=== PATIENT | male | born 1970 | race Caucasian/White ===

== ENCOUNTER 2020-11-11 15:41 | Inpatient (IN) | payer OTHER, SELFPAY ==
[2020-11-11] VITALS (8 sets, daily range): BP systolic 143–188; BP diastolic 84–110; PULSE 82–96; RESP 18–32; TEMP 36.6–37.3; O2SAT 95–100; BMI 47.1
--- NOTE | ~2020-11-11 | US_ITS ---
EXAMINATION: US venous doppler [facility] DATE: 11/12/2020 11:40 INDICATION: Chest pain and shortness of breath TECHNIQUE: Spaulding scale images without and with compression and Doppler images of the bilateral lower e xtremity veins were obtained. COMPARISON: None FINDINGS: The right common femoral vein, profunda femoral vein, femoral vein, popliteal vein, peroneal trunk, p osterior tibial veins, and greater saphenous vein are patent. The left common femoral vein, profunda femoral vein, femoral vein, popliteal vein, peroneal trunk, po sterior tibial veins, and greater saphenous vein are patent. IMPRESSION: 1. Patent bilateral lower extremity veins. No evidence of deep venous thrombosis. Reviewed, dictated and finalized at location A. IMPRESSION: 1. Patent bilateral lower extremity veins. No evidence of deep venous thrombosi s.
--- NOTE | ~2020-11-11 | XR_ITS ---
EXAMINATION: XR chest 2V DATE: 11/11/2020 16:33 INDICATION: Left chest pain. Left arm pain. Shortness of breath. TECHNIQUE: Frontal and lateral views of the chest were obtained. COMPARISON: None. FINDINGS: The chest demonstrates clear lungs without pneumonia, pleural effusion, or pneumothorax. Th e heart size is normal. IMPRESSION: 1. No acute cardiopulmonary disease. Reviewed, dictated and finalized at location A.
--- NOTE | 2020-11-11 16:01 | ECG_ITS ---
Measurements Intervals [place] Rate: 89 P: 33 OK: 143 QRS: 16 QRSD: 109 T: 76 QT: 393 QTc: 479 Interpretive Statements SINUS RHYTHM NONSPECIFIC T-WAVE ABNORMALITY- DIFFUSE LEADS BASELINE WANDER- V3-V4 BORDERLINE ECG Electronically Signed On 11-11-2020 19:00:57 CDT by Doug Bojorquez D.O.
[2020-11-11 16:19] LABS: Basophils Absolute Auto 0.1 K/mm3 (0.0-0.1); Basophils Percent Auto 0.8 % (0.2-1.2); Eosinophils Absolute Auto 0.2 K/mm3 (0-0.3); Eosinophils Percent Auto 2.2 % (0-4.4); Hematocrit 48.6 % (42.0-52.0); Hemoglobin 16.5 g/dL (14.0-18.0); Immature Granulocyte Absolute 0.09 K/mm3 (0.00-0.031); Immature Granulocyte Percent A 0.9 % (0-0.5); Lymphocytes Absolute Auto 2.87 K/mm3 (0.9-3.2); Lymphocytes Percent Auto 27.6 % (18.3-44.2); Mean Corpuscular Hemoglobin 28.9 pg (26-34); Mean Corpuscular Volume 85.3 fl (80-100); Mean Platelet Volume 10.1 fl (7.4-10.4); Monocytes Absolute Auto 0.8 K/mm3 (0.1-0.6); Monocytes Percent Auto 8.1 % (2.6-8.5); Neutrophils Absolute Auto 6.3 K/mm3 (1.3-6.7); Neutrophils Percent Auto 60.4 % (45.5-73.1); Platelet Count Result 202 k/mm3 (150-375); White Blood Count 10.4 K/mm3 (4.5-10.0)
[2020-11-11 16:35] LABS: INR 0.9
[2020-11-11 16:36] LABS: Partial Thromboplastin Time 27.2 SECONDS (22.3-36.8)
[2020-11-11 16:38] LABS: Anion Gap 9 mmol/L (8-16); Blood Urea Nitrogen 14 mg/dL (9-20); Calcium 9.1 mg/dL (8.4-10.2); Carbon Dioxide 27 mmol/L (22-30); Chloride 104 mmol/L (98-107); Estimated CRCL calculation 161 ml/min; Estimated Glomerular Filt Rate > 60; Glucose 116 mg/dL (65-110); Potassium 3.2 mmol/L (3.4-5.0); Sodium 140 mmol/L (137-145)
[2020-11-11 16:51] LABS: Troponin I 0.126 ng/mL (0.000-0.034)
[2020-11-11] MEDS: ASPIRIN 81 MG CHEWABLE TABLET 324 MG PO (17:16)
[2020-11-11] MEDS: METOPROLOL TARTRATE INJ 5 MG/5 ML VIAL IV PUSH (17:16)
--- NOTE | 2020-11-11 17:47 | ED.CHESTPAIN ---
HPI - Chest Pain General Chief Complaint: Chest Pain Stated Complaint: cp/left arm pain Time Seen by Provider: 11/11/20 17:04 Source: patient and family Mode of arrival: ambulatory Limitations: no limitations History of Present Illness HPI narrative: 50-year-old with no major medical problems here with complaints of left-sided chest pain radiating into his left arm. Patient states that he was working on his computer developed a sudden onset of left chest pain which lasted for half hour. Patient also states that he was extremely short of breath and dizzy. His checked his blood pressure and his diastolic was about 120. He states that his pain is much subsided however he has some tingling sensation in his left arm. He denies previous history of coronary artery disease. MD complaint: chest pain and chest heaviness Onset (ago): hour(s) (2) Timing of current episode: now resolved Prior episodes: No Onset: during rest Pain location: left chest Pain radiation: left arm Severity: moderate Quality: heaviness Relieving factors: nothing Exacerbating factors: nothing Risk Factors Coronary artery disease risk factors: none Thoracic aortic dissection risk factors: none Pulmonary embolism risk factors: morbid obesity Related Data Home Medications Medication Instructions Recorded Confirmed No Home Medications 11/11/20 11/11/20 Allergies Allergy/AdvReac Type Severity Reaction Status Date / Time No Known Allergies Allergy Mild Verified 11/11/20 17:01 Review of Systems Review of Systems: All systems reviewed & are unremarkable except as noted in HPI and below Constitutional: Constitutional: Reports no additional constitutional complaints Eyes: Eyes: Reports no additional eye complaints ENT: Reports system reviewed and no additional complaints, except as documented Cardiovascular: Cardiovascular: Reports as per HPI Respiratory: Respiratory: Reports as per HPI Gastrointestinal: Gastrointestinal: Reports no additional gastrointestinal complaints Musculoskeletal: Musculoskeletal: Reports no additional musculoskeletal complaints Integumentary/Breasts: Skin/Breast: Reports system reviewed and no additional complaints, except as docu Neurologic: Reports system reviewed and no additional complaints, except as documented Psychiatric: Psychiatric: Reports no additional psychiatric complaints [facility] Social History Social History Smoking status: Never smoker Alcohol intake: current Exam Narrative: GENERAL: Well-appearing, morbidly obese and in no acute distress. HEAD: Normocephalic, atraumatic. EYES: PERRLA and EOMI.. NECK: Supple. CHEST: Clear to auscultation. No respiratory distress. HEART: Regular rate and rhythm. No murmur heard. Normal peripheral pulses. ABDOMEN: Soft, nontender, morbidly obese, normal active bowel sounds. EXTREMITIES: Normal range of motion. No edema. SKIN: Warm, dry, no rash. NEURO: No focal deficits. Alert and oriented x3. PSYCH: Normal mood and affect. Course Course Emergency Course: Patient presently not having any symptoms. I informed him about his lab work and EKG findings. Will admit to the hospital for rule out. Consult cardiology patient agreed with the plan. Discussed with hospitalist agreed to admit the patient. Vital Signs Vital signs: Vital Signs Temperature 37.3 C 11/11/20 15:58 Pulse Rate 88 11/11/20 15:58 Respiratory Rate 20 11/11/20 15:58 Blood Pressure 187/105 H 11/11/20 15:58 Pulse Oximetry 98 11/11/20 15:58 Temperature 37.3 C 11/11/20 15:58 Pulse Rate 88 11/11/20 19:05 Respiratory Rate 32 H 11/11/20 19:05 Blood Pressure 143/98 H 11/11/20 19:05 Pulse Oximetry 98 11/11/20 16:56 MDM - Chest Pain MDM Narrative Medical decision making narrative: With a given history of left-sided chest pain associated with dizziness and shortness of breath will do cardiac work-up which in
[2020-11-11] MEDS: hydrALAZINE HCL 20 MG/ML VIAL 10 MG IV PUSH (18:20)
[2020-11-11] MEDS: ENOXAPARIN 80 MG/0.8 ML SYRINGE 150 MG SUB-Q (18:26)
[2020-11-11] MEDS: NITROGLYCERIN OINTMENT 1 INCH DOSE TRANSDERM ×2 (18:44→23:06)
[2020-11-11] MEDS: NITROGLYCERIN OINTMENT 1 INCH DOSE (18:47)
[2020-11-11 19:55] LABS: Troponin I 0.171 ng/mL (0.000-0.034)
--- NOTE | 2020-11-11 21:21 | PC.NURSE ---
Unit unable to take report at this time. Unit will call ED back.
[2020-11-11] MEDS: ACETAMINOPHEN 325 MG TABLET 650 MG PO (21:53)
--- NOTE | 2020-11-11 22:10 | ADMGEN ---
This patient, Jose Benites, was admitted to IMU Room 211-01. Patient/family oriented to hospital policies and general routines including ID bracelet, bed and alarms, visiting hours, pain management, procedures, bathroom and other care routines, personal items, smoking policy, room service/diet, and visiting hours. Information on how to activate the Rapid Response Team has been discussed. Patient/Family are encouraged to report perceived risks to care and to ask questions if they do not understand what they are told or what they should do.
--- NOTE | 2020-11-11 22:29 | PM.IMHP ---
H&P: HPI History of Present Illness Date/Time: 11/11/20 22:29 this is a 50-year-old obese male patient who has no prior medical history. The patient stated that he has high triglycerides in the past but has not been placed on any medications. The patient works from home and has a very sedentary lifestyle. The patient has had no prior history of hypertension or any heart disease. The patient stated that he was sitting at his computer today when he developed some left-sided chest pain that radiated to his left arm. The patient stated that he has had surgery to his left shoulder in the past with some arthritis and thought that maybe he was just having arthritis pain. The patient stated that his pain lasted approximately half an hour. However when the patient stood up he was short of breath and dizzy. He checked his blood pressure in his diastolic blood pressure was 120. The patient stated that the pain subsided when he came to the emergency room still had some tingling sensation to his left arm. Patient was given aspirin, Lopressor IV, hydralazine, and Lovenox, nitroglycerin. Patient's potassium is 3.2. Patient's troponin was 0.126 and 0.171. I did consult Cardiology. Patient's EKG was read as sinus rhythm nonspecific T-wave abnormality diffuse leads. Chest x-ray was read as no acute cardiopulmonary disease. The patient is being admitted to inpatient services on 11/12/2019. Chief Complaint: Chest pain Review of Systems Review of Systems: All systems reviewed & are unremarkable except as noted in HPI and below Constitutional: Constitutional: Reports as per HPI and Reports no additional constitutional complaints Eyes: Eyes: Reports as per HPI and Reports no additional eye complaints ENT: Reports system reviewed and no additional complaints, except as documented and Reports Normal hearing present Cardiovascular: Cardiovascular: Reports no additional cardiovascular complaints Respiratory: Respiratory: Reports no additional respiratory complaints and Reports no additional respiratory complaints Gastrointestinal: Gastrointestinal: Reports as per HPI and Reports no additional gastrointestinal complaints Musculoskeletal: Musculoskeletal: Reports no additional musculoskeletal complaints Integumentary/Breasts: Skin/Breast: Reports system reviewed and no additional complaints, except as docu and Reports as per HPI Neurologic: Reports system reviewed and no additional complaints, except as documented, Reports as per HPI and Reports Normal hearing present Psychiatric: Psychiatric: Reports no additional psychiatric complaints and Reports as per HPI Endocrine: Endocrine: Reports no additional endocrine complaints Hematologic/Lymphatic: Hematologic/Lymphatic: Reports no additional hematologic/lymphatic complaints Allergic/Immunologic: Allergic/Immunologic: Reports no additional allergic/immunologic complaints PMFSH Past Medical History Medical History (Updated 11/11/20 @ 22:45 by Sonal Headley NP) Osteoarthritis Surgical History Surgical History (Updated 11/11/20 @ 22:39 by Sonal Headley NP) H/O shoulder surgery H/O wisdom tooth extraction Hx of LASIK Hx of vasectomy Previous back surgery L4-L5 Family History Family History (Updated 11/11/20 @ 22:39 by Sonal Headley NP) Unknown No significant family history Social History Social History (Updated 11/11/20 @ 22:40 by Sonal Headley NP) Social History: The patient is and lives with his . 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 The patient rarely drinks. He denies any tobacco, marijuana or street drugs. The patient is lifelong nonsmoker. Smoking status: Never smoker Alcohol intake: current Drinks per week: 1 Substance use type: does not use Spiritual care concerns: No Meds Home Medications and Allergies Home Medications Medication Instructions Recorded Confirmed Type No Home Med
[2020-11-11] MEDS: POTASSIUM CHLORIDE 20 MEQ PACKET (FOR LIQUID) PO (23:05)
[2020-11-12] VITALS (15 sets, daily range): BP systolic 120–172; BP diastolic 60–105; PULSE 64–107; RESP 18–28; TEMP 36–36.8; O2SAT 96–97
[2020-11-12 00:48] LABS: D Dimer 0.27 ug/mL (<0.48)
[2020-11-12 05:26] LABS: Basophils Absolute Auto 0.1 K/mm3 (0.0-0.1); Basophils Percent Auto 0.9 % (0.2-1.2); Eosinophils Absolute Auto 0.2 K/mm3 (0-0.3); Eosinophils Percent Auto 2.7 % (0-4.4); Hematocrit 43.7 % (42.0-52.0); Immature Granulocyte Absolute 0.07 K/mm3 (0.00-0.031); Immature Granulocyte Percent A 0.8 % (0-0.5); Lymphocytes Absolute Auto 3.25 K/mm3 (0.9-3.2); Lymphocytes Percent Auto 37.1 % (18.3-44.2); Mean Corpuscular HGB Conc 34.3 g/dl (32-36); Mean Corpuscular Hemoglobin 29.1 pg (26-34); Mean Corpuscular Volume 84.7 fl (80-100); Mean Platelet Volume 9.9 fl (7.4-10.4); Monocytes Absolute Auto 0.8 K/mm3 (0.1-0.6); Monocytes Percent Auto 8.9 % (2.6-8.5); Neutrophils Absolute Auto 4.3 K/mm3 (1.3-6.7); Neutrophils Percent Auto 49.6 % (45.5-73.1); Platelet Count Result 172 k/mm3 (150-375); Red Blood Count 5.16 M/mm3 (4.6-6.20); Red Cell Distribution Width 12.9 % (11.5-14.5); White Blood Count 8.8 K/mm3 (4.5-10.0)
[2020-11-12 05:37] LABS: Lactic Acid Reflex 1.2 mmol/L (0.7-2.1)
[2020-11-12 05:39] LABS: Alanine Aminotransferase 49 U/L (4-50); Albumin Level 3.8 g/dL (3.5-5.1); Alkaline Phosphatase 59 U/L (38-126); Anion Gap 13 mmol/L (8-16); Aspartate Amino Transferase 46 U/L (17-59); Bilirubin,Total 1.3 mg/dL (0.2-1.3); Blood Urea Nitrogen 13 mg/dL (9-20); Calcium 8.7 mg/dL (8.4-10.2); Carbon Dioxide 26 mmol/L (22-30); Chloride 100 mmol/L (98-107); Cholesterol 221 mg/dL (0-200); Estimated CRCL calculation 142 ml/min; Estimated Glomerular Filt Rate > 60; Glucose 130 mg/dL (65-110); HDL Direct 23 mg/dL; Lipase 120 U/L (23-300); Magnesium 2.1 mg/dL (1.6-2.3); Potassium 3.1 mmol/L (3.4-5.0); Sodium 139 mmol/L (137-145); Triglycerides 221 mg/dL (<150)
[2020-11-12 05:50] LABS: LDL Cholesterol Direct 131 mg/dL
[2020-11-12 05:54] LABS: Troponin I 0.169 ng/mL (0.000-0.034)
--- NOTE | 2020-11-12 06:00 | ECG_ITS ---
Measurements Intervals [place] Rate: 79 P: 25 NM: 149 QRS: 9 QRSD: 104 T: 79 QT: 416 QTc: 478 Interpretive Statements SINUS RHYTHM NONSPECIFIC ST ELEVATION IN ANT/INF LEADS NONSPECIFIC T-WAVE ABNORMALITY- HIGH LATERAL LEADS BORDERLINE ECG Electronically Signed On 11-12-2020 9:41:55 CDT by Doug Bojorquez D.O.
[2020-11-12] MEDS: ENOXAPARIN 80 MG/0.8 ML SYRINGE 150 MG SUB-Q (06:11)
[2020-11-12] MEDS: NITROGLYCERIN OINTMENT 1 INCH DOSE TRANSDERM (06:13)
[2020-11-12] MEDS: ACETAMINOPHEN 325 MG TABLET 650 MG PO (06:15)
--- NOTE | 2020-11-12 08:42 | PM.CNCAR ---
Assessment and Plan Assessment and plan (1) NSTEMI (non-ST elevated myocardial infarction): Code(s): I21.4 - Non-ST elevation (NSTEMI) myocardial infarction Status: Acute Assessment and Plan: Patient presents with recurrent symptoms concerning for unstable angina occurring at rest with nonspecific ST changes, elevated troponin with chest/shoulder pain extending to the left neck. Associated hypertensive urgency. Discussed differential including secondary plaque rupture related to severe hypertension/hypertensive urgency versus primary rupture of unstable plaque due to underlying CAD. Given recurrent nature of symptoms most concerning for underlying CAD and plaque rupture and non ST-elevation SD. -As patient has received full anticoagulation this morning at 0600, we are unable to proceed with coronary angiography due to excessive risk of bleeding. Discussed with Dr Mustafa Interventional Cardiology who also agrees angiography advised but bleeding risk unacceptably elevated. Therefore, will hold anticoagulation prior to angiography and plan for tomorrow morning unless pt becomes unstable or has refractory unstable anginal sxs necessitating urgent or emergent angiography. Discussed at length with the patient who verbalized understanding and agreed with plan of care. -aspirin 81 mg daily, statin, KENA-inhibitor for blood pressure control. Low-dose metoprolol 12.5 mg b.i.d. now. -discontinue nitroglycerin paste due to severe headache. -discussed evaluation and workup at length including pathophysiology. Discussed invasive versus noninvasive including stress test or coronary angiography. Given patient's symptoms, nature of troponin elevation, elevated lipids and hypertension I have recommended proceed with coronary angiography for definitive assessment coronary anatomy. Risks including but not limited to bleeding, infection, stroke, myocardial infarction and/or discussed. All questions answered to his satisfaction. We discussed timeline anticipated with angiography and discharge depending upon need for intervention. -check 2D echocardiogram today. NPO after midnight for coronary angiography. He is to notify us immediately should he have recurrence of chest discomfort. -D-dimer negative. Lower extremity venous Dopplers pending. (2) Hypertensive urgency: Code(s): I16.0 - Hypertensive urgency Status: Acute Assessment and Plan: BP much better controlled after IV hydralazine, nitroglycerin paste. Add lisinopril 5 mg daily, metoprolol 12.5 mg twice daily. Discontinue nitroglycerin paste. (3) Dyslipidemia: Code(s): E78.5 - Hyperlipidemia, unspecified Status: Acute Assessment and Plan: LDL 130. If CAD documented on angiography LDL goal less than 70. Initiate atorvastatin 80 mg at bedtime. (4) Morbid obesity with BMI of 45.0-49.9, adult: Code(s): E66.01 - Morbid (severe) obesity due to excess calories; Z68.42 - Body mass index [BMI] 45.0-49.9, adult Status: Acute Assessment and Plan: Lifestyle modification, weight loss, exercise, and dietary changes and reduction in caloric intake counseling performed at length. All questions answered to his satisfaction. (5) CONNIE (obstructive sleep apnea): Code(s): G47.33 - Obstructive sleep apnea (adult) (pediatric) Status: Acute Assessment and Plan: History of CONNIE treated with CPAP many years ago. -Apnea link overnight for screening. Anticipate he will require outpatient follow-up and formal sleep study to reinitiate CPAP therapy. Recommendations to follow. We discussed the clinical implications and associated risks with untreated sleep apnea. History of Present Illness History of Present Illness Consult date/time: Date of service: 11/12/20 08:42 Cardiology consultation at the request of Sonal Headley of the [facility] service for opinion regarding chest pain and elevated troponin. Requesting physician: Jacinto Headley
--- NOTE | 2020-11-12 09:39 | ECHO_ITS ---
Patient Info Name: Jose Benites Age: 50 years : 1970 Gender: Male Ht: 70 in Wt: 328 lbs BSA: 2.79 m2 HR: 75 bpm BP: 146 / 88 mmHg Heart Rhythm: Sinus Rhythm Technical Quality: Poor Exam Date: 11/12/2020 11:40 AM Exam Location: [facility] Pulmonary Patient Status: Inpatient Admit Date: 11/11/2020 Staff Ordering Physician: Kendrick Whitehead MD Product Management Specialist: KRISTA Attending Provider: Amy Dumont PA-C Referring Physician: Ventura ARGUETA; Exam Type: CA echo dop color flow w con Study Info Complete two-dimensional, color flow and Doppler transthoracic echocardiogram is performed with contrast to opacify the left ventricle and to improve the deliniation of the left ventricle endocardial borders. Contrast/Agitated Saline Contrast/Ag. Saline: Definity Amount: 2.00 ml Reason for Poor Study: patient body habitus Summary 1. Technically difficult study with limited views despite definity echocardiographic enhancement. Regional wall motion assessment limited due to poor endomyocardial border definition. 2. Left ventricular chamber dimension is normal. 3. Left ventricular systolic function is normal, estimated at 60-65%. 4. There is mildly increased left ventricular wall thickness. Left Ventricle Left ventricular chamber dimension is normal. Left ventricular systolic function is normal, estimated at 60-65%. There is mildly increased left ventricular wall thickness. The left ventricular diastolic function is normal. Technically difficult study with limited views despite definity echocardiographic enhancement. Regional wall motion assessment limited due to poor endomyocardial border definition. Right Ventricle Right ventricular chamber dimension is not well visualized. Left Atria Left atrial chamber dimension is normal. Right Atria Right atrial chamber dimension is normal. Aortic Valve The aortic valve is not well visualized. There is no aortic valve stenosis. There is no aortic valve regurgitation. Pulmonic Valve The pulmonic valve is not well visualized. Mitral Valve The mitral valve has not well visualized. There is no mitral valve regurgitation. Tricuspid Valve The tricuspid valve leaflets are not well visualized. Pericardium/Pleural The pericardium appears normal. There is small pericardial effusion. Aorta The aortic root size at the sinus of Valsalva is normal. Left Ventricular Outflow Tract Name Value Normal LVOT 2D LVOT Diameter 2.03 cm LVOT Doppler LVOT Peak Gradient 3 mmHg LVOT Mean Gradient 2 mmHg LVOT VTI 20.03 cm LVOT VTI/AV VTI Ratio 0.73 LVOT Stroke Volume 64.95 ml LVOT CO 4.88 l/min LVOT CI 1.89 L/min/m2 Pulmonic Valve Name Value Normal
[2020-11-12 11:15] LABS: Hemoglobin A1C 5.6 % (<5.7)
--- NOTE | 2020-11-12 11:26 | PM.IMPN ---
Progress Note: A&P Assessment and Plan (1) Elevated troponin: Code(s): R77.8 - Other specified abnormalities of plasma proteins Status: Acute Assessment and Plan: Patient with chest pain with radiation to left arm and left neck with associated shortness of breath, lightheadedness and diaphoresis. Presented to ER for further evaluation and found to have elevated blood pressure, elevated troponins and cardiology was consulted. Cardiology is to preform a cath tomorrow AM Started on Statin due to Elevated Total Cholesterol and LDL at 131. Continue monitoring Tele. Continue monitoring. Appreciate Cardiology input. (2) Elevated blood-pressure reading without diagnosis of hypertension: Code(s): R03.0 - Elevated blood-pressure reading, without diagnosis of hypertension Status: Acute Assessment and Plan: Started on Lisinopril 5 mg and Metoprolol Tartrate 12.5 Q12hrs. BP Improved today. APpreciate cardiology and make adjustments as needed. (3) Unstable angina pectoris: Code(s): I20.0 - Unstable angina Status: Acute Assessment and Plan: Going to have cath tomorrow (4) Hypokalemia: Code(s): E87.6 - Hypokalemia Status: Acute Assessment and Plan: Low at 3.1. Replenished. Recheck in the morning Time Spent With Patient Time with patient: 25 - 35 minutes Subjective Date/time seen: 11/12/20 11:26 Interval history: Date of Service 11/12/20: The patient is feeling well at this time. Reports slight headache with Nitro patch. Otherwise no more chest pain, SOB. Denies any fever, chills, nausea, vomiting, abdominal pain, leg swelling, calf pain, lightheadedness or dizziness or any other symptoms at this time Review of Systems Review of Systems: All systems reviewed & are unremarkable except as noted in HPI and below Exam Narrative: General: 50-year-old man sitting up in bed talking on the phone. Appears comfortable. In no acute distress. Skin: No jaundice or cyanosis. Good skin turgor. Neck: Full range of motion. Supple. Respiratory: Lungs are clear to auscultation bilaterally. No bony chest wall tenderness. Cardiovascular: The heart has a regular rate and rhythm without murmur. Lower extremities: No lower extremity edema. Distal pulses are easily palpated. No calf tenderness to palpation. Gastrointestinal: The abdomen is soft, nontender and nondistended with active bowel sounds. Psychiatric: Lucid and oriented. Memory intact. Neurologic: No focal deficits. Speech is clear. No facial drooping. Objective Data Vital Signs Vital Signs: Vital Signs - 24 hr 11/11/20 15:58 11/11/20 16:56 11/11/20 16:57 Temperature 99.2 F Pulse Rate 88 93 90 Respiratory Rate 20 22 H Blood Pressure 187/105 H 188/110 H Pulse Oximetry 98 98 11/11/20 19:05 11/11/20 20:46 11/11/20 22:09 Temperature 97.9 F Pulse Rate 88 89 96 Respiratory Rate 32 H 20 20 Blood Pressure 143/98 H 152/89 H 162/96 H Pulse Oximetry 100 95 11/11/20 23:06 11/11/20 23:24 11/12/20 00:00 Temperature 98.0 F 98.0 F Pulse Rate 82 82 85 Respiratory Rate 18 20 Blood Pressure 151/84 H 151/84 H Pulse Oximetry 98 98 11/12/20 02:00 11/12/20 04:00 11/12/20 06:00 Temperature 98.0 F Pulse Rate 64 82 74 Respiratory Rate 18 Blood Pressure 120/60 Pulse Oximetry 97 11/12/20 08:00 Temperature 96.8 F L Pulse Rate 80 Respiratory Rate 28 H Blood Pressure 146/88 H Pulse Oximetry 96 Intake/Output Intake/Output: Intake & Output 11/09/20 11/10/20 11/11/20 11/12/20 23:59 23:59 23:59 23:59 Intake Total 200 Output Total 900 Balance -700 Meds/Results Medications: Active Medications Generic Name Dose Route Start Last Admin Trade Name Freq PRN Reason Stop Dose Admin Acetaminophen 650 mg 11/11/20 21:42 11/12/20 06:15 Acetaminophen 325 Mg Tablet PO 650 mg Q6H PRN Administration Mild Pain (1-3) or Fever Aspi
[2020-11-12] MEDS: PERFLUTREN LIPID MICROSPHERES 1.5 ML VIAL DILUTED TO 10 ML TOTAL VOLUME IV PUSH (11:57)
[2020-11-12] MEDS: ASPIRIN 81 MG ENTERIC TABLET PO (12:41)
[2020-11-12] MEDS: ATORVASTATIN 40 MG TABLET 80 MG PO (12:41)
[2020-11-12] MEDS: lisinopriL 5 MG TABLET PO (12:41)
[2020-11-12] MEDS: POTASSIUM CHLORIDE 20 MEQ TABLET 40 MEQ PO (12:42)
[2020-11-12] MEDS: PANTOPRAZOLE 40 MG TABLET PO (12:42)
[2020-11-12] MEDS: hydrALAZINE HCL 20 MG/ML VIAL 10 MG IV PUSH (17:54)
[2020-11-12] MEDS: METOPROLOL TARTRATE 12.5 MG TABLET PO (20:28)
[2020-11-13] VITALS (22 sets, daily range): BP systolic 126–166; BP diastolic 76–101; PULSE 71–105; RESP 14–28; TEMP 35.7–36.7; O2SAT 95–98
[2020-11-13 05:38] LABS: Anion Gap 10 mmol/L (8-16); Blood Urea Nitrogen 10 mg/dL (9-20); Calcium 8.7 mg/dL (8.4-10.2); Carbon Dioxide 23 mmol/L (22-30); Chloride 105 mmol/L (98-107); Estimated CRCL calculation 161 ml/min; Estimated Glomerular Filt Rate > 60; Glucose 145 mg/dL (65-110); Potassium 3.4 mmol/L (3.4-5.0); Sodium 138 mmol/L (137-145)
--- NOTE | 2020-11-13 09:24 | PC.NURSE ---
This patient, Jose Benites, was received from [facility] on 11/13/20 at 0925. Patient/family oriented to unit policies and routines
--- NOTE | 2020-11-13 09:52 | PC.NURSE ---
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 Hold Lipitor and Protonix for now.
[2020-11-13] MEDS: POTASSIUM CHLORIDE 20 MEQ TABLET 40 MEQ PO (10:02)
[2020-11-13] MEDS: ASPIRIN 81 MG ENTERIC TABLET PO (10:04)
[2020-11-13] MEDS: lisinopriL 5 MG TABLET PO (10:04)
[2020-11-13] MEDS: METOPROLOL TARTRATE 12.5 MG TABLET PO (10:05)
[2020-11-13 10:23] LABS: Alanine Aminotransferase 49 U/L (4-50); Albumin Level 4.2 g/dL (3.5-5.1); Alkaline Phosphatase 69 U/L (38-126); Aspartate Amino Transferase 44 U/L (17-59)
--- NOTE | 2020-11-13 11:36 | PM.IMPN ---
Progress Note: A&P Assessment and Plan (1) Elevated troponin: Code(s): R77.8 - Other specified abnormalities of plasma proteins Status: Acute Assessment and Plan: Patient with chest pain with radiation to left arm and left neck with associated shortness of breath, lightheadedness and diaphoresis. Presented to ER for further evaluation and found to have elevated blood pressure, elevated troponins and cardiology was consulted. Cardiology is to preform a cath today. Started on Statin due to Elevated Total Cholesterol and LDL at 131. Continue monitoring Tele. Continue monitoring. Appreciate Cardiology input. (2) Elevated blood-pressure reading without diagnosis of hypertension: Code(s): R03.0 - Elevated blood-pressure reading, without diagnosis of hypertension Status: Acute Assessment and Plan: Started on Lisinopril 5 mg and Metoprolol Tartrate 12.5 Q12hrs. BP Improved today. Appreciate cardiology and make adjustments as needed. (3) Unstable angina pectoris: Code(s): I20.0 - Unstable angina Status: Acute Assessment and Plan: Going to have cath tomorrow (4) Hypokalemia: Code(s): E87.6 - Hypokalemia Status: Acute Assessment and Plan: Low at 3.4. Replenished with 40 mEq today since borderline. Recheck in the morning. Time Spent With Patient Time with patient: 25 - 35 minutes Subjective Date/time seen: 11/13/20 11:36 Interval history: Date of Service 11/13/20: The patient is feeling well at this time. Reports being worried about back pain with having to lay flat for his cath. Otherwise no more chest pain, SOB. Denies any fever, chills, nausea, vomiting, abdominal pain, leg swelling, calf pain, lightheadedness or dizziness or any other symptoms at this time Review of Systems Review of Systems: All systems reviewed & are unremarkable except as noted in HPI and below Exam Narrative: General: 50-year-old man sitting up in bed watching a movie on his Ipad. Appears comfortable. In no acute distress. Skin: No jaundice or cyanosis. Good skin turgor. Neck: Full range of motion. Supple. Respiratory: Lungs are clear to auscultation bilaterally. No bony chest wall tenderness. Cardiovascular: The heart has a regular rate and rhythm without murmur. Lower extremities: No lower extremity edema. Distal pulses are easily palpated. No calf tenderness to palpation. Gastrointestinal: The abdomen is soft, nontender and nondistended with active bowel sounds. Psychiatric: Lucid and oriented. Memory intact. Neurologic: No focal deficits. Speech is clear. No facial drooping. Objective Data Vital Signs Vital Signs: Vital Signs - 24 hr 11/12/20 12:00 11/12/20 12:34 11/12/20 14:00 Temperature 97.8 F Pulse Rate 80 82 85 Respiratory Rate 24 H Blood Pressure 155/94 H Pulse Oximetry 96 11/12/20 16:00 11/12/20 18:00 11/12/20 20:00 Temperature 98.2 F 96.9 F L Pulse Rate 91 98 94 Respiratory Rate 24 H 18 Blood Pressure 172/105 H 159/92 H Pulse Oximetry 97 97 11/12/20 20:28 11/12/20 22:00 11/12/20 23:54 Temperature 96.9 F L Pulse Rate 93 107 H 89 Respiratory Rate 20 Blood Pressure 133/66 Pulse Oximetry 97 11/13/20 00:00 11/13/20 02:00 11/13/20 04:00 Temperature 98.1 F Pulse Rate 81 81 89 Respiratory Rate 16 Blood Pressure 160/90 H Pulse Oximetry 95 11/13/20 06:00 11/13/20 07:54 11/13/20 10:00 Temperature 96.2 F L Pulse Rate 81 105 H 88 Respiratory Rate 24 H Blood Pressure 145/96 H Pulse Oximetry 97 11/13/20 10:05 Temperature Pulse Rate 88 Respiratory Rate 25 H Blood Pressure 162/98 H Pulse Oximetry 96 Intake/Output Intake/Output: Intake & Output 11/10/20 11/11/20 11/12/20 11/13/20 23:59 23:59 23:59 23:59 Intake Total 960 0 Output Total 1300 Balance -340 0 Meds/Results Medications: Active Medications Generic Name Dose Route Start Last
--- NOTE | 2020-11-13 11:36 | WPDMODSED ---
Moderate Sedation Note-Pt Data Patient Data Diagnosis: chest pain troponin elevation with flat curve morbid obesity Present Complaint: this is a 50-year-old man who is morbidly obese BMI is 47. He entered the hospital with a distant episode of left arm discomfort radiating across the chest to the right side. Electrocardiogram does not show evidence of acute injury pattern troponin levels are mildly elevated but flat. In this setting an angiogram has been recommended. Procedure to be performed/Plan: Left heart catheterization Allergies Allergy/AdvReac Type Severity Reaction Status Date / Time No Known Allergies Allergy Mild Verified 11/11/20 17:01 Home Medications Medication Instructions Recorded Confirmed Type aspirin-caffeine [Kim Back and 1 tablet PO HS 11/11/20 11/11/20 History Body] ibuprofen-diphenhydramine HCl 2 cap PO HS 11/11/20 11/11/20 History [Advil PM Liqui-Gels] Current Medications: Active Medications Acetaminophen (Acetaminophen 325 Mg Tablet) 650 mg PO Q6H PRN PRN Reason: Mild Pain (1-3) or Fever Last Admin: 11/12/20 06:15 Dose: 650 mg Documented by: Aspirin (Aspirin 81 Mg Enteric Tablet) 81 mg PO QAM ON LICENSE OF [facility] Last Admin: 11/13/20 10:04 Dose: 81 mg Documented by: Atorvastatin Calcium (Atorvastatin 40 Mg Tablet) 80 mg PO DAILY ON LICENSE OF [facility] Last Admin: 11/12/20 12:41 Dose: 80 mg Documented by: Hydralazine HCl (Hydralazine Hcl 20 Mg/Ml Vial) 10 mg IV PUSH Q8H PRN PRN Reason: Blood Pressure - High Last Admin: 11/12/20 17:54 Dose: 10 mg Documented by: Lisinopril ([facility] 5 Mg Tablet) [facility] Last Admin: 11/13/20 10:04 Dose: 5 mg Documented by: Metoprolol Tartrate (Metoprolol Tartrate 12.5 Mg Tablet) 12.5 mg PO Q12HR ON LICENSE OF [facility] Last Admin: 11/13/20 10:05 Dose: 12.5 mg Documented by: Morphine Sulfate (Morphine Sulfate (*Crx) 4 Mg/Ml Inj) 4 mg IV PUSH Q2H PRN PRN Reason: Pain Rated 7-10 Nitroglycerin (Nitroglycerin Sl 0.4 Mg Tablet) 0.4 mg SUBLINGUAL Q5MIN PRN PRN Reason: Chest Pain Ondansetron HCl (Ondansetron Inj 4 Mg/2 Ml Vial) 4 mg IV PUSH Q4H PRN PRN Reason: Nausea Pantoprazole Sodium (Pantoprazole 40 Mg Tablet) [facility] [place] Last Admin: 11/12/20 12:42 Dose: 40 mg Documented by: Sedation/Anesthesia: No previous sedation/anesthesia problems (including family history). [facility] Past Medical History Medical History Elevated blood-pressure reading without diagnosis of hypertension Morbid obesity with BMI of 45.0-49.9, adult CONNIE (obstructive sleep apnea) Osteoarthritis Surgical History Surgical History H/O shoulder surgery H/O wisdom tooth extraction Hx of LASIK Hx of vasectomy Previous back surgery L4-L5 Family History Family History Unknown No significant family history Social History Social History Social History: The patient is and lives with his . 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 The patient rarely drinks. He denies any tobacco, marijuana or street drugs. The patient is lifelong nonsmoker. Smoking status: Never smoker Alcohol intake: current Drinks per week: 1 Substance use type: does not use Spiritual care concerns: No Mod Sed Physical Exam Physical Exam Pre Procedural Exam: Normal: Airway, Lungs, Heart Rate, Heart Rhythm, Neuro Exam and Extremities and Variation: Appearance ( pleasant morbidly obese man no distress), Neck ( cannot assess JVD given his body habitus) and Heart Size ( PMI not palpable) Hours since solid foods: 14 Hours since liquid intake: 14 Mallampati Classification: class III Internal Medicine - PN: Obj Da Vital Signs Vital Signs: Vital Signs - 24 hr 11/12/20 12:00 11/12/20 12:34 11/12/20 14:00 Temperature 36.6 C P
[2020-11-13] MEDS: ACETAMINOPHEN 325 MG TABLET 650 MG PO (11:50)
--- NOTE | 2020-11-13 11:52 | PC.NURSE ---
Pt to medical lab technologist per bed.
--- NOTE | 2020-11-13 12:59 | ECG_ITS ---
Measurements Intervals [place] Rate: 85 P: 25 ID: 154 QRS: 18 QRSD: 109 T: 69 QT: 357 QTc: 425 Interpretive Statements SINUS RHYTHM INCOMPLETE RIGHT BUNDLE BRANCH BLOCK BORDERLINE T WAVE ABNORMALITY- DIFFUSE LEADS BORDERLINE ECG Electronically Signed On 11-13-2020 17:06:28 CDT by Doug Bojorquez D.O.
--- NOTE | 2020-11-13 13:03 | WPDCARDPROC ---
Cardiac Cath Procedure Note Date of procedure:: 11/13/20 Performing physician:: Fazal Love MD Indication:: acute coronary syndrome Brief clinical history:: this is a massively obese 50-year-old man who entered the hospital with ischemic shoulder and chest pain with a very modest troponin rise. ECG has not shown any diagnostic changes of injury. Because of the presumptive diagnosis of ACS angiography has been recommended. Procedure Procedure performed:: coronary angiography left ventriculography PCI(PANCHITO) to distal circumflex Angio-Seal to right femoral artery Sedation/Medication given:: Fentanyl 50 mg Versed 2 mg case start time 12:19 p.m. case end time 12:53 p.m. sedation provided by Emily Camacho RN, trained observer Access site:: right femoral artery Estimated blood loss:: 20 cc Procedure note:: patient was brought to cardiac catheterization lab in the postabsorptive state the right femoral triangle was prepped draped in usual sterile fashion. The pannus was taped in a cephalad direction. After this I infiltrated the right groin with 1% lidocaine and puncture the right femoral artery using the modified Seldinger technique and placed a long 5 Guamanian vascular sheath. I then used a 5 Guamanian FL4 catheter to engage and inject the left artery. After this a 5 Guamanian JR4 catheter was used to engage and inject the right coronary artery. Finally a 5 Guamanian angled pigtail catheter was used to measure left-sided hemodynamics eject a left ventriculogram in WILSON projection. the cineangiograms were then reviewed and PCI of the distal circumflex was recommended and carried out as detailed below. Prior to PCI the patient had the 5 Guamanian sheath changed out over a guidewire for a 6 Guamanian long sheath. I then gave aspirin and 180 mg of oral Brilinta and systemically anticoagulated him with Angiomax bolus and infusion for the PCI. Following PCI angiogram was done of the femoral artery through the sheath and a 6 Guamanian Angio-Seal device was deployed at the site with a good hemostatic result. There were no procedural complications and he left the medical laboratory assistant with no evidence of groin hematoma. Findings:: Hemodynamics: Central aortic pressure is 145 over 85 left ventricle 145/0 end-diastolic pressure of 16 there is no gradient on pullback across the aortic valve. Left ventricle: The left ventricle is of normal size the inferior posterior segment is markedly hypodynamic but not akinetic the anterior wall contracts normally the global ejection fraction is visually estimated to be 45%. The left main coronary artery is large in caliber a nicely patent left anterior descending is moderate to large caliber vessel extending down to apex the LAD has diffuse mild luminal irregularities with mild diffuse atherosclerosis but no flow-limiting disease is identified. the circumflex is a medium caliber artery appears to be dominant to the posterior circulation. There is a huge ramus intermedius branch which provides the few perfusion in the territory of OM 1. There is a very small 2nd OM branch after which the trunk of the circumflex has a area of high-grade disease of 95-99% between the 2nd and 3rd OM branches. The circumflex proximal to this has mild diffuse atherosclerosis which does not appear to be flow limiting. The right coronary artery is small to medium in caliber non dominant and angiographically free of disease. Intervention: The left coronary artery was cannulated using a 6 Guamanian CLS 3.5 guiding catheter. I used a 0.014 BMW coronary guidewire to wire the circumflex traverse the target lesion and advance the wire to the distal portion of OM3. The lesion was pre-dilated using a 2.5 x 20 mm emerge PTCA balloon. Following this I deployed a 3.0 x 18 mm Theracosiro sirolimus eluting stent to the target lesion at 10 atmospheres which provided an excellent anatomical result the vessel with a in the target lesion was widely patent wi
--- NOTE | 2020-11-13 13:20 | SUR.PHASEII ---
Patient report received from Donny Camacho, RAQUEL and Marlyn Stovall, RAQUEL. Patient lying flat in bed with no complaints. VSS. No signs of distress noted. Groin site soft and no signs of hematoma noted. No active bleeding noted. Right pedal pulse with strong palpable pulse. Will continue to monitor.
--- NOTE | 2020-11-13 14:13 | SUR.PHASEII ---
Patient report given to Trisha Palacio RN and Brandy RN and care of patient transitioned. Patient continues to rest comfortably with no distress notes. VSS although BP does remain elevated but at pre-procedure baseline.
[2020-11-13] MEDS: PANTOPRAZOLE 40 MG TABLET PO (14:42)
[2020-11-13] MEDS: ATORVASTATIN 40 MG TABLET 80 MG PO (14:42)
[2020-11-13] MEDS: SODIUM CHLORIDE 0.9% IV 1,000 ML 125 ML IV CONT (14:42)
[2020-11-13] MEDS: hydrALAZINE HCL 20 MG/ML VIAL 10 MG IV PUSH (15:09)
[2020-11-13] MEDS: TICAGRELOR 90 MG TABLET PO (20:00)
[2020-11-14] VITALS (8 sets, daily range): BP systolic 142–152; BP diastolic 76–91; PULSE 74–94; RESP 14–22; TEMP 36.2–36.6; O2SAT 96–98
--- NOTE | 2020-11-14 05:11 | ECG_ITS ---
Measurements Intervals [place] Rate: 84 P: 2 NH: 116 QRS: 15 QRSD: 105 T: 91 QT: 375 QTc: 444 Interpretive Statements SINUS RHYTHM WITH SHORT NH INTERVAL INCOMPLETE RIGHT BUNDLE BRANCH BLOCK BORDERLINE T WAVE ABNORMALITY- DIFFUSE LEADS BORDERLINE ECG Electronically Signed On 11-14-2020 17:07:58 CDT by Doug Bojorquez D.O.
[2020-11-14 06:28] LABS: Anion Gap 9 mmol/L (8-16); Blood Urea Nitrogen 10 mg/dL (9-20); Calcium 8.7 mg/dL (8.4-10.2); Carbon Dioxide 22 mmol/L (22-30); Chloride 107 mmol/L (98-107); Estimated CRCL calculation 161 ml/min; Estimated Glomerular Filt Rate > 60; Glucose 135 mg/dL (65-110); Magnesium 2.5 mg/dL (1.6-2.3); Potassium 3.4 mmol/L (3.4-5.0); Sodium 138 mmol/L (137-145)
--- NOTE | 2020-11-14 08:58 | PM.PNCARD ---
Progress Note: A&P Assessment and Plan (1) NSTEMI (non-ST elevated myocardial infarction): Code(s): I21.4 - Non-ST elevation (NSTEMI) myocardial infarction Status: Acute Assessment and Plan: Doing well after CX stent. REviewed CAD, stent, risk reduction, meds, activity, etc. Specifically advised not to stop DAPT; doing so may result in MD and . Pt was hoping to fly to [facility] this week to get away; he would be 30 minutes from a hospital. I don't think this is a very good idea as he is still in a higher risk time. Office will call for FU appt; may go back to work after being seen in the office. OK for discharge. (2) HTN (hypertension): Code(s): I10 - Essential (primary) hypertension Status: Acute Assessment and Plan: Better but not at goal. Increase lisinopril to 10 mg daily and FU w/ Dr. Melgoza (3) Dyslipidemia: Code(s): E78.5 - Hyperlipidemia, unspecified Status: Acute Assessment and Plan: REviewed w/ pt; Atorvastatin (4) CONNIE (obstructive sleep apnea): Code(s): G47.33 - Obstructive sleep apnea (adult) (pediatric) Status: Acute Assessment and Plan: Apnea Link very abnml; will need OPT sleep study. (5) Morbid obesity with BMI of 45.0-49.9, adult: Code(s): E66.01 - Morbid (severe) obesity due to excess calories; Z68.42 - Body mass index [BMI] 45.0-49.9, adult Status: Acute Subjective Date/time seen: 11/14/20 08:58 Interval history: Date of SErvice 11/14/2020 50 y.o. WM admitted w/ NSTEMI, had CX stent yesterday. Doing well, no CP or SOB, getting up to BR w/o trouble. Review of Systems Constitutional: Constitutional: Denies fatigue Cardiovascular: Cardiovascular: Denies chest pain, Denies pedal edema, Denies leg edema and Denies lightheadedness Respiratory: Respiratory: Denies dyspnea Gastrointestinal: Gastrointestinal: Denies abdominal pain Genitourinary: Genitourinary: Denies dysuria Musculoskeletal: Musculoskeletal: Reports no additional musculoskeletal complaints Integumentary/Breasts: Skin/Breast: Reports system reviewed and no additional complaints, except as docu Neurologic: Reports system reviewed and no additional complaints, except as documented Exam Narrative: Pleasant WM NAD Const: General: comfortable and no acute distress HENMT: Mouth: Yes moist mucous membranes Eyes: EOM: EOMs intact bilaterally Neck: Neck: supple Resp: Effort & Inspection: normal respiratory effort Auscultation: clear to auscultation bilaterally Cardio: Rate: regular rate Rhythm: regular rhythm Heart sounds: no murmurs Other: Cath site w/o hematoma or ecchymosis GI: Inspection: non-distended GI Palp: Yes Soft to palpation and No Tenderness to palpation present (GI) Skin: General skin exam: normal color Neuro: Cognition (Neuro): normal cognition Speech: normal speech Motor exam (neuro): Normal motor muscle tone present throughout Extrem: General: no edema and no pedal edema Other: Pedal pulses intact on RLE Psych: Mental Status: mental status grossly normal Affect: normal affect Objective Data Vital Signs Vital Signs: Vital Signs - 24 hr 11/13/20 10:00 11/13/20 10:05 11/13/20 13:20 Temperature Pulse Rate 88 88 78 Pulse Rate [Bilateral Pedal (Dorsalis Pedis) Palpation] 78 Respiratory Rate 25 H 28 H Blood Pressure 162/98 H 155/97 H Pulse Oximetry 96 96 11/13/20 13:35 11/13/20 13:50 11/13/20 14:05 Temperature Pulse Rate 74 71 74 Pulse Rate [Bilateral Pedal (Dorsalis Pedis) Palpation] Respiratory Rate 22 H 14 19 Blood Pressure 154/101 H 163/101 H 166/98 H Pulse Oximetry 96 97 97 11/13/20 14:30 11/13/20 14:49 11/13/20 15:00 Temperature 98 F Pulse Rate 74 75 76 Pulse Rate [Bilateral Pedal (Dorsalis Pedis) Palpation] Respiratory Rate 25 H 20 Blood Pressure 163/97 H 166/98 H Pulse Oxim
[2020-11-14] MEDS: ASPIRIN 81 MG CHEWABLE TABLET PO (09:32)
[2020-11-14] MEDS: ATORVASTATIN 40 MG TABLET 80 MG PO (09:33)
[2020-11-14] MEDS: METOPROLOL SUCCINATE EXT REL 25 MG TABCR PO (09:33)
[2020-11-14] MEDS: TICAGRELOR 90 MG TABLET PO (09:33)
[2020-11-14] MEDS: lisinopriL 10 MG TABLET PO (09:53)
--- NOTE | 2020-11-14 10:52 | PM.DS ---
DS: Admitting Diagnosis Admitting Diagnosis Chest pain DS: Discharge Diagnosis Discharge Diagnosis (1) NSTEMI (non-ST elevated myocardial infarction): Code(s): I21.4 - Non-ST elevation (NSTEMI) myocardial infarction Status: Acute Assessment and Plan: Patient is a 50 year old man with a history of arthritis, who presented to the ER chest pain with radiation to left arm and left neck with associated shortness of breath, lightheadedness and diaphoresis. Presented to ER for further evaluation and found to have elevated blood pressure, elevated troponins and cardiology was consulted. Cardiology preformed a cath 11/13/20 which showed circumflex has a area of high-grade disease of 95-99% between the 2nd and 3rd OM branches. Infero posterior hypokinesia and global ejection fraction about 45%. Stent was placed. Continue aspirin, Brilinta, statin, metoprolol, lisinopril and given nitro p.r.n. for chest pain Follow-up with cardiology as an outpatient for further evaluation monitoring Return to ER warnings given. Patient understands agrees the plan all questions answered (2) Hypertensive urgency: Code(s): I16.0 - Hypertensive urgency Status: Acute Assessment and Plan: Lisinopril increased to 10 mg and metoprolol 25 q.12hrs Told to check his blood pressure twice daily follow-up primary care and Cardiology or further adjustments. (3) CONNIE (obstructive sleep apnea): Code(s): G47.33 - Obstructive sleep apnea (adult) (pediatric) Status: Acute Assessment and Plan: Patient had an ApneaLink which is highly suspicious for obstructive sleep apnea. He needs further outpatient testing as soon as possible for further evaluation of this and may need a CPAP machine. (4) Elevated troponin: Code(s): R77.8 - Other specified abnormalities of plasma proteins Status: Acute (5) Hypokalemia: Code(s): E87.6 - Hypokalemia Status: Acute Assessment and Plan: Stable. (6) Dyslipidemia: Code(s): E78.5 - Hyperlipidemia, unspecified Status: Acute DS: Summary Hospital Course Reason for hospitalization: Hospital Course: See above Status at Discharge Cognitive/behavioral status at discharge: Stable, improved. Time Spent with Patient Time attestation: Total time spent providing and/or coordinating discharge services: Time spent: Greater than 30 minutes Exam Narrative: General: 50-year-old man walking back to his bed from the bathroom. Appears comfortable. In no acute distress. Skin: No jaundice or cyanosis. Good skin turgor. Neck: Full range of motion. Supple. Respiratory: Lungs are clear to auscultation bilaterally. No bony chest wall tenderness. Cardiovascular: The heart has a regular rate and rhythm without murmur. Lower extremities: No lower extremity edema. Distal pulses are easily palpated. No calf tenderness to palpation. Gastrointestinal: The abdomen is soft, nontender and nondistended with active bowel sounds. Psychiatric: Lucid and oriented. Memory intact. Neurologic: No focal deficits. Speech is clear. No facial drooping. DS: Data Data Completed and Pending Labs on day of discharge: Labs from last 24 hours 11/14/20 06:07 Sodium 138 Potassium 3.4 Chloride 107 Carbon Dioxide 22 Anion Gap 9 BUN 10 Creatinine 0.70 Estim Creat Clear Calc 161 Estimated GFR > 60 Glucose 135 H Calcium 8.7 Magnesium 2.5 H Discharge Plan Discharge Attending physician on discharge: Iliana Santos Consulting providers: Kendrick Whitehead Discharging Clinician: Amy Dumont Anticipated Discharge Date/Time: 11/14/20 09:30 Patient Disposition: Home, Self-Care Activity: as tolerated Diet: heart healthy Discharge Instructions: No driving, for 2-3 days, until the cardiac catheterization site is no longer tender. May return to work after being seen by [facility]
== END 2020-11-14 11:48 | disposition home or self-care (01) | DRG 247 ==
LOC: ANHED 17:58 → ANHIMU 20:53 → ANHCPC 11-13 09:47
PROVIDERS: Emergency Medicine; Nurse Practitioner; Specialist; Admitting Provider Family Medicine; Emergency Provider Family Medicine; PCP Family Medicine; Visit Provider Physician Assistant
PROC: 4A023N7 Measurement of Cardiac Sampling and Pressure, Left Heart, Percutaneous Approach (ICD-10-PCS; CPT 93452; principal; 2020-11-13 11:30)
PROC: 027034Z Dilation of Coronary Artery, One Artery with Drug-eluting Intraluminal Device, Percutaneous Approach (ICD-10-PCS; CPT 92928; 2020-11-13 11:30)
PROC: 027034Z Dilation of Coronary Artery, One Artery with Drug-eluting Intraluminal Device, Percutaneous Approach (ICD-10-PCS; 2020-11-13 11:30)
DX: I21.4 Non-ST elevation (NSTEMI) myocardial infarction (principal); Z68.42 Body mass index [BMI] 45.0-49.9, adult; R77.8 Other specified abnormalities of plasma proteins; E66.01 Morbid (severe) obesity due to excess calories; I25.10 Atherosclerotic heart disease of native coronary artery without angina pectoris; I16.0 Hypertensive urgency; I10 Essential (primary) hypertension; E78.5 Hyperlipidemia, unspecified; E87.6 Hypokalemia; G47.33 Obstructive sleep apnea (adult) (pediatric)
CPT/HCPCS: 36415; 71046; 80048; 80053; 80061; 80076; 83036; 83605; 83690; 83735; 84443; 84484; 85025; 85380; 85610; 85730; 93005; 93458; 93970; 96374; 99285; A9270; C1725; C1760; C1769; C1874; C1887; C1894; C8929; C9600; G0269; J0360; J0583; J1644; J1650; J2250; J3010; J7030; J7040; Q9957

== ENCOUNTER 2021-03-08 07:15 | Outpatient (RCR) | payer OTHER, SELFPAY ==
[2020-12-15 08:18] VITALS: BP 122/74; PULSE 82; O2SAT 98
[2020-12-15 09:01] VITALS: PULSE 77
--- NOTE | 2020-12-28 07:55 | PCCPR ---
Absent today, not feeling well.
--- NOTE | 2020-12-30 13:54 | PCCPR ---
Absent-left voicemail stating he has a migraine.
--- NOTE | 2021-01-13 07:31 | PCCPR ---
Pt LM [facility] today due to starting work early. Plans to return 01/14
--- NOTE | 2021-01-25 07:48 | PCCPR ---
Absent due to shoulder pain Oli LANDA on our VM returned from vacation however his shoulder was bothering him.
--- NOTE | 2021-02-10 07:41 | PCCPR ---
Absent due illness Oli SYEDA to let us know he got his covid booster yesterday and is feeling rough .
== END 2021-03-08 18:28 | disposition home or self-care (01) ==
LOC: ANHCPREHAB 07:15
PROVIDERS: PCP Family Medicine; Visit Provider Specialist
DX: I25.2 Old myocardial infarction (principal)
CPT/HCPCS: 93798

== ENCOUNTER 2023-08-22 07:51 | Outpatient (CLI) | payer OTHER, SELFPAY | END 2023-08-22 07:52 | disposition home or self-care (01) | LOC: ANHBWCAUD 07:52 | PROVIDERS: PCP Family Medicine; Visit Provider Family Medicine | DX: H91.90 Unspecified hearing loss, unspecified ear (principal) | CPT/HCPCS: 92557; 92567 ==

== ENCOUNTER 2023-09-26 07:22 | Outpatient (CLI) | payer OTHER, SELFPAY ==
--- NOTE | ~2023-09-26 | XR_ITS ---
1 Shoulder Technique: AP and scapular Y views were obtained. Clinical History: Pain Findings: No fracture or dislocation is seen. Osseous alignment is anatomic. Moderate glenohumeral dandy int degenerative change present, with inferomedial humeral head osteophyte. There is minimal AC joint degenerative change. Soft tissues are unremarkable. Impression: Degenerative changes, as above. Reviewed, dictated and finalized at location . Impression: Degenerative changes, as above.
--- NOTE | ~2023-09-26 | XR_ITS ---
XR knee RT 3V Ordering provider: Alcon Melgoza MD History: . M25.561 - Pain in right knee, PREVIOUS INJURY . Comparison: None. FINDINGS: BONES: No acute fracture or dislocation. JOINT SPACES: Normal. SOFT TISSUES: Normal. IMPRESSION: No acute osseous abnormality right knee. Reviewed, dictated and finalized at location A.
== END 2023-09-26 07:23 | disposition home or self-care (01) ==
PROVIDERS: PCP Family Medicine; Visit Provider Family Medicine
DX: M19.012 Primary osteoarthritis, left shoulder (principal); M25.561 Pain in right knee
CPT/HCPCS: 73030; 73562

== ENCOUNTER 2024-09-19 15:14 | Outpatient (CLI) | payer OTHER, SELFPAY ==
--- OUTSIDE RECORDS SUMMARY | 2024-09-19 15:18 | XMS_ITS | Clinical Summary ---
Author Organization [facility] Virtual Care Address [address] [place] [id number] Phone Care Team Providers Care Dolphin Researcher Name Role Phone Alcon Melgoza MD Primary Care Provider Tracy Jules DNP Unavailable [phone] Allergies No known active allergies Medications aspirin 81 mg enteric coated tablet Take 1 tablet (81 mg total) by mouth daily Active fish oil-dha-epa 1,200-144-216 mg capsule Take by mouth Active acetaminophen (TYLENOL) 500 mg tablet Take 1 tablet (500 mg total) by mouth every 6 (six) hours as needed for pain Active semaglutide (Ozempic) 1 mg/dose (2 mg/1.5 mL) pen injector injection Inject 2 mg under the skin every 7 days Wednesdays. This upcoming mon will be the first time he had 1mg dose. Last time was the .5 mg Active therapeutic multivitamin (THERA) tabletIndications :Vitamin Deficiency Prevention Take 1 tablet by mouth daily Active atorvastatin (LIPITOR) 80 mg tabletIndications :Coronary artery disease involving [place] coronary artery of [place] heart without angina pectoris TAKE 1 TABLET DAILY 90 tablet 3 4 Active metoprolol XL (TOPROL-XL) 25 mg extended release tabletIndications :Coronary artery disease involving [place] coronary artery of [place] heart without angina pectoris TAKE 1 TABLET EVERY MORNING 90 tablet 3 4 Active lisinopriL (PRINIVIL,ZESTRIL ) 20 mg tabletIndications :Coronary artery disease involving [place] coronary artery of [place] heart without angina pectoris,Essentia l hypertension Take 1 tablet (20 mg total) by mouth daily 90 tablet 4 Active Active Problems Problem Noted Date Diagnosed Date Confusion 11/13/2022 Mixed hyperlipidemia 05/14/2021 H/O cardiomyopathy 05/14/2021 Class 3 severe obesity due t o excess calories with serious comorbidity and body mass index (BMI) of 45.0 to 49.9 in adult 05/14/2021 CONNIE on CPAP 05/14/2021 Coronary artery disease invo lving [place] coronary artery of [place] heart without angina pectoris 11/20/2020 S/P coronary artery stent placement 11/20/2020 Essential hypertension 11/20/2020 History of non-ST elevation myocardial infarctio n (NSTEMI) 11/20/2020 Surgical History Surgery Date Site/Laterality Comments CARDIAC CATHETERIZATION BACK SURGERY 03/13/1997 - 03/12/1998 CORONARY ANGIOPLASTY 11/13/2020 PCI to LCX LASIK 2006 VASECTOMY 2004 Medical History Medical History Date Comments NSTEMI (non-ST elevated myocardial infarction) ( HCC) Hypertensive urgency CONNIE (obstructive sleep apnea) Hypokalemia Hyperlipidemia Chronic kidney disease Coronary artery disease Heart disease November 2020 Family History Medical History Relation Name Comments Colon polyps Father No Known Problems Mother Diabetes Son 1 Heriberto Benites Relation Name Status Comments Father Alive Mother Alive Son 1 Heriberto Benites Alive Son 2 Alive Social History Tobacco Use Types Packs/Day Years Used Date Smoking Tobacco: Former Cigarettes Q uit: 10/12/1999 Cigars Smokeless Tobacco: Never Tobacco Cessation:Counseling Given: Not Answered Alcohol Use Standard Drinks/Week Comments Yes 0 (1 standard drink = 0.6 oz pur e alcohol) occasionally Social Connection and Isolation Panel [NHANES] A nswer Date Recorded In a typical week, how many times do you talk on the phone with family, friends, or neighbors? Three times a week 11/14/2022 How often do you get togethe r with friends or relatives? Three times a week 11/14/2022 How often do you attend chur ch or temple services? Never 11/14/2022 Do you belong to any clubs o r organizations such as judaism groups, unions, fraternal or athletic groups, or school groups? No 11/14/2022 How often do you attend meet ings of the clubs or organizations you belong to? Never 11/14/2022 Are you , , di vorced, , never , or living with a partner? 11/14/2022 AUDIT-C Answer Date Recorded Q1: How often do you have a drink containing alc ohol? Monthly or less 11/13/2022 Q2: How many drinks containi ng alcohol do you have on a typical day when you are drinking? 1 or 2 11/13/2022 Q3: How often do you have si x or more drinks on one occasion? Never 11/13/2022 Overall Financial Resource Strain (CARDIA) Answe r Date Recorded How hard is it for you to pa y for the very basics like food, housing, medical care, and heating? Not hard at all 11/14/2022 Hunger Vital Sign Answer Date Recorded Within the past 12 months, y ou worried that your food would run out before you got the money to buy more. Never true 11/15/19 23 Within the past 12 months, t he food you bought just didn't last and you didn't have money to get more. Never true 11/14/2022 PRAPARE - Transportation Answer Date Re corded In the past 12 months, has l ack of transportation kept you from medical appointments or from getting medications? No 06/2022 In the past 12 months, has l ack of transportation kept you from meetings, work, or from getting things needed for daily living? No 11/14/2022 Housing Stability Vital Sign Answer Teddy e Recorded In the last 12 months, was t here a time when you were not able to pay the mortgage or rent on time? No 11/14/2022 In the last 12 months, how many places have you lived? 1 11/14/2022 In the last 12 months, was t here a time when you did not have a steady place to sleep or slept in a chcf (including now)? No 11/14/2022 Personal Safety Answer Date Recorded Have you ever been in or are you currently in a harmful physical or emotional relationship or is someone making you feel afraid or unsafe? Denies 11/14/2022 Education Answer Date Recorded What is the highest level of school you have completed or the highest degree you have received? Bachelor's degree (e.g., BA, AB, BS) 11/14/2022 Sex and Gender Information Value Date Recorded Sex Assigned at Not on file Legal Sex Male 7:38 AM JACQUARD LOOM CARPET WEAVER Gender Identity Male 05/19/2023 12:17 PM JACQUARD LOOM CARPET WEAVER Sexual Orientation Straight 05/19/2023 12 :17 PM JACQUARD LOOM CARPET WEAVER Obstetrics History Last Filed Vital Signs Vital Sign Reading Time Taken Comments Blood Pressure 143/84 02/01/2024 8:42 AM JACQUARD LOOM CARPET WEAVER Pulse 85 02/01/2024 8:42 AM JACQUARD LOOM CARPET WEAVER Temperature 36.6 C (97.9 F) 11/15/2022 3:00 PM CDT Respiratory Rate 18 04/14/2023 9:01 AM JACQUARD LOOM CARPET WEAVER Oxygen Saturation 93% 02/01/2024 8:42 AM JACQUARD LOOM CARPET WEAVER Inhaled Oxygen Concentration - - Weight 150.6 kg (332 lb) 02/01/2024 8:42 AM JACQUARD LOOM CARPET WEAVER Height 177.8 cm (5' 10) 02/01/2024 8:42 AM JACQUARD LOOM CARPET WEAVER Body Mass Index 47.64 02/01/2024 8:42 AM JACQUARD LOOM CARPET WEAVER Plan of Treatment Health Maintenance Due Date Last Done Comments Colon Cancer Screening-Colonoscopy 1971 Depression Screening 1971 Hepatitis C Screening 1971 Prostate Cancer Screening-PSA 1971 DTaP/Tdap/Td Vaccine (1 - Tdap) 10/21/1982 Hepatitis B Screening 10/21/1989 Regular Well Visit/Exam 18-64 10/21/1989 Zoster Vaccine (1 of 2) 10/21/2021 Covid-19 Vaccine (4 - 2023-2 5 season) 2023 02/08/2021, 06/16/2020, 05/24/2020 Influenza Vaccine (#1) 2024 , 01/30/2020, 11/29/2018 Pneumococcal vaccine <65 Aged Out No longer eligible based on patient's age to complete this topic Insurance [facility] OPEN ACCESS [employer] OPEN ACCESS [employer] OPEN ACCESS Advance Directives For more information, please contact: [phone] * Full Code (Latest Code Status on File) Date Activated Date Inactivated Comments 11/13/2022 1:37 PM 11/15/2022 10:15 PM Care Teams Dolphin Researcher Relationship Specialty Start Date End Date Alcon Melgoza MD [address] [address] PCP - General Family Medicine 11/11/20 Tracy Jules DNP [address] [facility] [address] [facility] [address] [place] [address] Nurse Practitioner Neurology 11/15/22
--- OUTSIDE RECORDS SUMMARY | 2024-09-19 15:18 | XMS_ITS | Continuity of Care Document ---
Author Name [facility] Organization [facility] Care Team Providers Care Senior Animator Name Role Phone [facility] Unavailable Unavailable Procedures Combined list of: 1) Procedures from Department of Veterans Affairs facilities going back up to thelast 18 months, not all VA non-surgical procedures are included; 2) All procedures from the Department of Defense facilities. Procedure Procedure Type Code Date Perfomer Comments Sourc e PURE TONE AUDIOMETRY (THRESHOLD); AIR ONLY 06/09/1999 [facility] EXCISION OF INTERVERTEBRAL DISC 11/11/1998 [facility] Social History Combined list of available smoking, tobacco, and other social history from Department of Defense and Veterans Affairs facilities. Social History Type Response Date Comment Magali e This section is an empty social history section. DoD
--- OUTSIDE RECORDS SUMMARY | 2024-09-19 15:18 | XMS_ITS | Referral Summary ---
Author Organization [facility] Virtual Care Address [address] [place] [phone] Phone Care Team Providers Care Monotyper Name Role Phone Alcon Melgoza MD Primary Care Provider Tracy Jules DNP Unavailable [phone] Allergies No known active allergies Medications [...] 80 mg tabletIndications :Coronary artery disease involving [place] coronary artery of [place] heart without angina pectoris TAKE 1 TABLET DAILY 90 tablet 3 4 Active metoprolol XL (TOPROL-XL) 25 mg extended release tabletIndications :Coronary artery disease involving [place] coronary artery of [place] heart without angina pectoris TAKE 1 TABLET EVERY MORNING 90 tablet 3 4 Active lisinopriL (PRINIVIL,ZESTRIL ) 20 mg tabletIndications :Coronary artery disease involving [place] coronary artery of [place] heart without angina pectoris,Essentia l hypertension Take [...] CPAP 05/14/2021 Coronary artery disease invo lving [place] coronary artery of [place] heart without angina pectoris 11/20/2020 S/P coronary artery stent placement 11/20/2020 Essential hypertension 11/20/2020 History of non-ST elevation myocardial infarctio n (NSTEMI) 11/20/2020 Social History Tobacco Use Types Packs/Day Years [...] often do you attend chur ch or holiness services? Never 11/14/2022 Do you belong to any clubs o r organizations such as adventist groups, unions, fraternal or athletic groups, or [...] place to sleep or slept in a [place] (including now)? No 11/14/2022 Personal Safety Answer [...] on file Legal Sex Male 7:38 AM NAVAL MARINE ENGINEER Gender Identity Male 05/19/2023 12:17 PM NAVAL MARINE ENGINEER Sexual Orientation Straight 05/19/2023 12 :17 PM NAVAL MARINE ENGINEER Last Filed Vital Signs Vital Sign Reading Time Taken Comments Blood Pressure 143/84 02/01/2024 8:42 AM NAVAL MARINE ENGINEER Pulse 85 02/01/2024 8:42 AM NAVAL MARINE ENGINEER Temperature 36.6 C (97.9 F) 11/15/2022 3:00 PM CDT Respiratory Rate 18 04/14/2023 9:01 AM NAVAL MARINE ENGINEER Oxygen Saturation 93% 02/01/2024 8:42 AM NAVAL MARINE ENGINEER Inhaled Oxygen Concentration - - Weight 150.6 kg (332 lb) 02/01/2024 8:42 AM NAVAL MARINE ENGINEER Height 177.8 cm (5' 10) 02/01/2024 8:42 AM NAVAL MARINE ENGINEER Body Mass Index 47.64 02/01/2024 8:42 AM NAVAL MARINE ENGINEER Plan of Treatment Not on file Insurance [employer] OPEN ACCESS [employer] OPEN ACCESS [employer] OPEN ACCESS Advance Directives For more information, please contact: [phone] * Full Code (Latest Code Status on File) Date Activated Date Inactivated Comments 11/13/2022 1:37 PM 11/15/2022 10:15 PM Care Teams Monotyper Relationship Specialty Start Date End Date Alcon Melgoza MD [address] [facility] [address] [place] [address] PCP - General Family Medicine 11/11/20 Tracy Jules DNP [address] [facility] [address] [place] [address] Nurse Practitioner Neurology 11/15/22
== END 2024-09-19 15:15 | disposition home or self-care (01) ==
LOC: ANHLAB 15:15
PROVIDERS: PCP Family Medicine; Visit Provider Family Medicine
DX: R51.9 Headache, unspecified (principal)
CPT/HCPCS: 36415; 85652

== ENCOUNTER 2024-11-04 00:27 | Day surgery (SDC) | payer OTHER, SELFPAY ==
[2024-10-25 10:47] VITALS: BMI 47.4
--- OUTSIDE RECORDS SUMMARY | 2024-11-04 00:28 | XMS_ITS | Continuity of Care Document ---
Author Name [facility] Organization [facility] Care Team Providers Care Cooling Tower Operator Name Role Phone [facility] Unavailable Unavailable Social History Combined list of available smoking, tobacco, and other social history from Department of Defense and Veterans Affairs facilities. Social History Type Response Date Comment Sourc e This section is an empty social history section. DoD
--- OUTSIDE RECORDS SUMMARY | 2024-11-04 00:29 | XMS_ITS | Clinical Summary ---
Author Organization [facility] Virtual Care Address [address] [place] [phone] Phone Care Team Providers Care Nib Finisher Name Role Phone Alcon Melgoza MD Primary Care Provider Tracy Jules DNP Unavailable [phone] Allergies No known active allergies Medications [...] 80 mg tabletIndications :Coronary artery disease involving [place] coronary artery of [place] heart without angina pectoris TAKE 1 TABLET DAILY 90 tablet 3 4 Active metoprolol XL (TOPROL-XL) 25 mg extended release tabletIndications :Coronary artery disease involving [place] coronary artery of [place] heart without angina pectoris TAKE 1 TABLET EVERY MORNING 90 tablet 3 4 Active lisinopriL (PRINIVIL,ZESTRIL ) 20 mg tabletIndications :Coronary artery disease involving [place] coronary artery of [place] heart without angina pectoris,Essentia l hypertension Take [...] CPAP 05/14/2021 Coronary artery disease invo lving [place] coronary artery of [place] heart without angina pectoris 11/20/2020 S/P coronary [...] alcohol) occasionally Social Connection and Isolation Panel Answer Date Recorded In a typical week, how many times do you talk on the phone with family, friends, or neighbors? Three times a week 11/14/2022 How often do you get togethe r with friends or relatives? Three times a week 11/14/2022 How often do you attend chur ch or jew services? Never 11/14/2022 Do you belong to any clubs o r organizations such as alevism groups, unions, fraternal or athletic groups, or [...] place to sleep or slept in a senior living (including now)? No 11/14/2022 Personal Safety Answer [...] on file Legal Sex Male 7:38 AM NETWORK SUPPORT ADMINISTRATOR Gender Identity Male 05/19/2023 12:17 PM NETWORK SUPPORT ADMINISTRATOR Sexual Orientation Straight 05/19/2023 12 :17 PM NETWORK SUPPORT ADMINISTRATOR Obstetrics History Last Filed Vital Signs Vital Sign Reading Time Taken Comments Blood Pressure 143/84 02/01/2024 8:42 AM NETWORK SUPPORT ADMINISTRATOR Pulse 85 02/01/2024 8:42 AM NETWORK SUPPORT ADMINISTRATOR Temperature 36.6 C (97.9 F) 11/15/2022 3:00 PM CDT Respiratory Rate 18 04/14/2023 9:01 AM NETWORK SUPPORT ADMINISTRATOR Oxygen Saturation 93% 02/01/2024 8:42 AM NETWORK SUPPORT ADMINISTRATOR Inhaled Oxygen Concentration - - Weight 150.6 kg (332 lb) 02/01/2024 8:42 AM NETWORK SUPPORT ADMINISTRATOR Height 177.8 cm (5' 10) 02/01/2024 8:42 AM NETWORK SUPPORT ADMINISTRATOR Body Mass Index 47.64 02/01/2024 8:42 AM NETWORK SUPPORT ADMINISTRATOR Plan of Treatment Health Maintenance Due Date [...] patient's age to complete this topic Insurance [facility]ESS [employer] OPEN ACCESS CIG[employer] OPEN ACCESS Advance Directives For more information, please contact: [phone] * Full Code (Latest Code Status on File) Date Activated Date Inactivated Comments 11/13/2022 1:37 PM 11/15/2022 10:15 PM Care Teams Nib Finisher Relationship Specialty Start Date End Date Alcon Melgoza MD [address] [facility] [address] [place] [id number] PCP - General Family Medicine 11/11/20 Tracy Jules DNP [address] [facility] [address] [place] [address] Nurse Practitioner Neurology 11/15/22
[2024-11-04 09:15] VITALS: BP 144/90; PULSE 90; RESP 18; TEMP 37.1; O2SAT 98; BMI 46.3
--- NOTE | 2024-11-04 09:30 | WPDANESEPPF ---
Anes - Initial Pre Proc Eval Procedure: Operation Date: 11/04/24 11:00 Proposed Procedures p Diagnostic Colonoscopy - Ortiz Perez MD Date/Time: 11/04/24 09:30 Surgeon: Ortiz Perez MD Pre Op Diagnosis: Other fecal abnormalities Patient Data Age: 54 Gender: M Height: 1.78 m Weight: 146.6 kg Last Vital Signs Temp 37.1 C 11/04/24 09:15 Pulse 90 11/04/24 09:15 Resp 18 11/04/24 09:15 BP 144/90 H 11/04/24 09:15 Pulse Ox 98 11/04/24 09:15 O2 Del Method Room Air 11/04/24 09:15 Allergies Allergy/AdvReac Type Severity Reaction Status Date / Time No Known Allergies Allergy Mild Verified 11/04/24 09:20 Home Medications ?Medication ?Instructions ?Recorded ?Confirmed ?Type aspirin 81 mg tablet,delayed 81 mg PO DAILY #30 tabs 11/14/20 11/04/24 Rx release (Adult Low Dose Aspirin) acetaminophen 650 mg 650 mg PO Q12H 11/19/20 11/04/24 History tablet,extended release (Tylenol Arthritis Pain) multivitamin 1 tablet PO DAILY 12/15/20 11/04/24 History nitroglycerin 0.4 mg sublingual 0.4 mg sublingual Q5MIN PRN Chest 08/30/22 10/25/24 Rx tablet (Nitrostat) Pain #10 tabs semaglutide 2 mg/dose (8 mg/3 mL) 2 mg (0.75 mL) subcut WEEKLY #9 mL 05/31/24 11/04/24 Rx subcutaneous pen injector atorvastatin 80 mg tablet 80 mg PO HS #90 tabs 06/26/24 11/04/24 Rx lisinopril 20 mg tablet 20 mg PO DAILY #90 tabs 07/22/24 11/04/24 Rx meloxicam 15 mg tablet 15 mg PO DAILY PRN severe pain #30 09/19/24 10/25/24 Rx tabs tamsulosin 0.4 mg capsule 0.4 mg PO QHS #30 caps 09/19/24 11/04/24 Rx metoprolol succinate 25 mg 25 mg PO QAM #90 tabs 10/14/24 11/04/24 Rx tablet,extended release 24 hr (Toprol XL) Patient hx anesthesia problems: none Family hx anesthesia problems: none Results Review: All pre-operative results and documents have been reviewed as part of the pre-operative evaluation. [facility] Past Medical History Medical History BPH w urinary obs/LUTS History of CVA (cerebrovascular accident) without residual deficits TIA (transient ischemic attack) Hypertensive arteriosclerotic cardiovascular disease Diabetes HTN (hypertension) CONNIE (obstructive sleep apnea) Morbid obesity with BMI of 45.0-49.9, adult Osteoarthritis Surgical History Surgical History H/O wisdom tooth extraction Previous back surgery L4-L5 Hx of vasectomy Hx of LASIK H/O shoulder surgery Family History Family History Unknown No significant family history Father No significant family history Other Hypertension Social History Social History Social History: The patient is and lives with his . 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 The patient rarely drinks. He denies any tobacco, marijuana or street drugs. The patient is lifelong nonsmoker. Smoking status: Former smoker Tobacco type: cigars Second hand tobacco smoke exposure: No Smoking end date: 12/15/20 Additional smoking assessment comments: smoked 1 cigar around every 4 months Alcohol intake: current Drinks per week: 1 Substance use: never Substance use type: does not use Lack of Transportation: No Lack of Food: Never True Current Housing: I Have Housing Concerned About Future Housing: No Difficulty Paying Gas/Electric Bills: No Difficulty Paying for Meds: No Currently Unemployed: No Education: Decline to Answer Difficulty w/ Childcare or Family Care: No Living arrangements: with family Occupation/Education: occupation Gender identity (if verbalized by the patient): Male Sexual Orientation (if Verbalized by the Patient): Straight or Heterosexual Spiritual care concerns: No Anes - Eval Final PreProcedure Day of Procedure 11/04/24 09:30 Patient weight: morbidly obese Heart: regular rate and rhythm Lungs: clear to auscultation Airway: Mallampati scale class III Neurological: alert and oriented Last oral intake: >/= 8 hours ASA classification: III Emergent: no Anesthetic plan: proceed Anesthesia type and monitoring: general GIVS and standard monitoring Results Review: All pre-operative results and documents have been reviewed as part of the pre-operative evaluation. Informed Consent: The patient's anesthetic plan and its attendant risks and benefits were discussed with the patient/family/POA. Questions were solicited and answers provided to the satisfaction of the patient/family/POA.
[2024-11-04] MEDS: LACTATED RINGERS 1,000 ML 150 ML IV CONT (09:36)
--- NOTE | 2024-11-04 10:11 | PM.HPGS ---
History of Present Illness History of Present Illness Consent: Risks, benefits, and alternatives have been discussed and questions answered. Patient agrees to proceed with procedure. Chief complaint: Other fecal abnormalities Narrative: Jose Benites Jr. is a 54 year old male here for first colonoscopy, had + cologuard Review of Systems Review of Systems: All systems reviewed & are unremarkable except as noted in HPI and below PMFSH Past Medical History Medical History (Updated 11/04/24 @ 10:12 by Ortiz Perez MD) Positive colorectal cancer screening using Cologuard test BPH w urinary obs/LUTS History of CVA (cerebrovascular accident) without residual deficits TIA (transient ischemic attack) Hypertensive arteriosclerotic cardiovascular disease Diabetes HTN (hypertension) CONNIE (obstructive sleep apnea) Morbid obesity with BMI of 45.0-49.9, adult Osteoarthritis Surgical History Surgical History H/O wisdom tooth extraction Previous back surgery L4-L5 Hx of vasectomy Hx of LASIK H/O shoulder surgery Family History Family History Unknown No significant family history Father No significant family history Other Hypertension Social History Social History Social History: The patient is and lives with his . 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 The patient rarely drinks. He denies any tobacco, marijuana or street drugs. The patient is lifelong nonsmoker. Smoking status: Former smoker Tobacco type: cigars Second hand tobacco smoke exposure: No Smoking end date: 12/15/20 Additional smoking assessment comments: smoked 1 cigar around every 4 months Alcohol intake: current Drinks per week: 1 Substance use: never Substance use type: does not use Lack of Transportation: No Lack of Food: Never True Current Housing: I Have Housing Concerned About Future Housing: No Difficulty Paying Gas/Electric Bills: No Difficulty Paying for Meds: No Currently Unemployed: No Education: Decline to Answer Difficulty w/ Childcare or Family Care: No Living arrangements: with family Occupation/Education: occupation Gender identity (if verbalized by the patient): Male Sexual Orientation (if Verbalized by the Patient): Straight or Heterosexual Spiritual care concerns: No Meds Home Medications and Allergies Home Medications ?Medication ?Instructions ?Recorded ?Confirmed ?Type aspirin 81 mg tablet,delayed 81 mg PO DAILY #30 tabs 11/14/20 11/04/24 Rx release (Adult Low Dose Aspirin) acetaminophen 650 mg 650 mg PO Q12H 11/19/20 11/04/24 History tablet,extended release (Tylenol Arthritis Pain) multivitamin 1 tablet PO DAILY 12/15/20 11/04/24 History nitroglycerin 0.4 mg sublingual 0.4 mg sublingual Q5MIN PRN Chest 08/30/22 10/25/24 Rx tablet (Nitrostat) Pain #10 tabs semaglutide 2 mg/dose (8 mg/3 mL) 2 mg (0.75 mL) subcut WEEKLY #9 mL 05/31/24 11/04/24 Rx subcutaneous pen injector atorvastatin 80 mg tablet 80 mg PO HS #90 tabs 06/26/24 11/04/24 Rx lisinopril 20 mg tablet 20 mg PO DAILY #90 tabs 07/22/24 11/04/24 Rx meloxicam 15 mg tablet 15 mg PO DAILY PRN severe pain #30 09/19/24 10/25/24 Rx tabs tamsulosin 0.4 mg capsule 0.4 mg PO QHS #30 caps 09/19/24 11/04/24 Rx metoprolol succinate 25 mg 25 mg PO QAM #90 tabs 10/14/24 11/04/24 Rx tablet,extended release 24 hr (Toprol XL) Allergies Allergy/AdvReac Type Severity Reaction Status Date / Time No Known Allergies Allergy Mild Verified 11/04/24 09:20 Vital Signs Vital Signs - 24 hr 11/04/24 09:15 Temperature 98.7 F Pulse Rate 90 Respiratory Rate 18 Blood Pressure 144/90 H Pulse Oximetry 98 Oxygen Delivery Room Air Exam Const: General: comfortable and no acute distress HENMT: Face/Nose/Sinus: Normal nares present Eyes: General: appearance normal, both eyes and all related structures Neck: Neck: no JVD Resp: Auscultation: clear to auscultation bilaterally Cardio: Rate: regular rate Rhythm: regular rhythm GI: Inspection: non-distended GI Palp: Yes Soft to palpation Skin: General skin exam: normal color Neuro: Speech: normal speech Extrem: General: normal to inspection Psych: Mental Status: mental status grossly normal Assessment and Plan Assessment and plan (1) Positive colorectal cancer screening using Cologuard test: Code(s): R19.5 - Other fecal abnormalities Status: Acute Assessment and Plan: colonoscopy
[2024-11-04 10:29] VITALS: BP 120/77; PULSE 90; RESP 22; O2SAT 95
[2024-11-04 10:39] VITALS: BP 131/83; PULSE 89; RESP 20; O2SAT 96
[2024-11-04 10:49] VITALS: BP 136/84; PULSE 84; RESP 17; O2SAT 98
== END 2024-11-04 10:56 | disposition home or self-care (01) ==
PROVIDERS: PCP Family Medicine; Referring Provider Family Medicine; Visit Provider Internal Medicine Gastroenterology
PROC: 0DJD8ZZ Inspection of Lower Intestinal Tract, Via Natural or Artificial Opening Endoscopic (ICD-10-PCS; CPT 45378; principal; 2024-11-04 11:00)
DX: R19.5 Other fecal abnormalities (principal); I11.9 Hypertensive heart disease without heart failure; E11.9 Type 2 diabetes mellitus without complications; G47.33 Obstructive sleep apnea (adult) (pediatric); N40.1 Benign prostatic hyperplasia with lower urinary tract symptoms; M19.90 Unspecified osteoarthritis, unspecified site; E66.01 Morbid (severe) obesity due to excess calories; Z68.42 Body mass index [BMI] 45.0-49.9, adult; Z79.82 Long term (current) use of aspirin; Z79.85 Long-term (current) use of injectable non-insulin antidiabetic drugs; Z98.890 Other specified postprocedural states; Z98.1 Arthrodesis status; Z87.891 Personal history of nicotine dependence; Z86.79 Personal history of other diseases of the circulatory system
CPT/HCPCS: 45378; 82948; J2003; J2704; J7120

== ENCOUNTER 2024-11-23 09:22 | Outpatient (CLI) | payer OTHER, SELFPAY ==
--- NOTE | ~2024-11-23 | XR_ITS ---
EXAMINATION: XR lumbar spine min 4V DATE: 11/23/2024 10:11 INDICATION: Lower back pain for one week. TECHNIQUE: 5 of the lumbar spine, and cone-down lateral view of the lumbosacral junction were obtained. COMPARISON: None. FINDINGS: There is bowel gas and stool projecting over the pelvis which limits evaluation. Lumbar vertebral body heights are within normal limits. No compression fracture. Mild intervertebral disc space narrowing throughout the lumbar spine. Grade 1 retrolisthesis of L2 on L3 and L3 on L4. Moderate deg enerative change in the mid and lower lumbar facet joints. IMPRESSION: 1. No compression fracture in the lumbar spine. 2. Mild to moderate degenerative change in the mid and lower lumbar spine. 3. Grade 1 retrolisthesis of L2 on L3 and L3 on L4. If symptoms persist or worsen, consider an MRI of the lumbar spine for further assessment Reviewed, dictated and finalized at location Q.
== END 2024-11-23 09:23 | disposition home or self-care (01) ==
LOC: ANHIMG 09:28
PROVIDERS: PCP Family Medicine; Visit Provider Chiropractor
DX: M54.31 Sciatica, right side (principal); M99.03 Segmental and somatic dysfunction of lumbar region; M53.3 Sacrococcygeal disorders, not elsewhere classified; M99.04 Segmental and somatic dysfunction of sacral region; M99.07 Segmental and somatic dysfunction of upper extremity; M51.369 Other intervertebral disc degeneration, lumbar region without mention of lumbar back pain or lower extremity pain
CPT/HCPCS: 72110